=== PATIENT | female | born 1950 | race Caucasian/White ===

== ENCOUNTER 2024-12-25 06:49 | Observation (INO) ==
--- NOTE | 2024-12-11 15:47 | PAT Medication Instructions ---
Medication Instructions Date of Service December 11, 2024 Home Medications alendronate 70 mg tablet (Fosamax) 1 tab PO WK calcium carbonate (Calcium 600) 600 mg PO QAM levothyroxine 88 mcg tablet 88 mcg PO QAM multivitamin 1 tab PO QAM aspirin 81 mg tablet,delayed release (Adult Aspirin Regimen) 81 mg PO QAM potassium chloride 10 mEq capsule,extended release 10 meq PO QAM naproxen sodium 220 mg capsule (Aleve) 220 mg PO Q12H PRN Pain amlodipine 5 mg tablet 7.5 mg PO QAM Joint Support Gummy 1 gummy PO QAM celecoxib 100 mg capsule (Celebrex) 100 mg PO DAILY PRN Pain valsartan 160 mg-hydrochlorothiazide 12.5 mg tablet 1 tab PO QAM ASK your surgeon for instructions naproxen sodium 220 mg capsule (Aleve) 220 mg PO Q12H PRN Pain celecoxib 100 mg capsule (Celebrex) 100 mg PO DAILY PRN Pain ASK your prescriber and surgeon aspirin 81 mg tablet,delayed release (Adult Aspirin Regimen) 81 mg PO QAM STOP taking 2 weeks before surgery (or as soon as possible if surgery is within 2 weeks) Joint Support Gummy 1 gummy PO QAM DO NOT take the morning of surgery alendronate 70 mg tablet (Fosamax) 1 tab PO WK calcium carbonate (Calcium 600) 600 mg PO QAM multivitamin 1 tab PO QAM potassium chloride 10 mEq capsule,extended release 10 meq PO QAM valsartan 160 mg-hydrochlorothiazide 12.5 mg tablet 1 tab PO QAM Take morning of surgery With a small sip of water, OTHERWISE NOTHING TO EAT OR DRINK AFTER MIDNIGHT: levothyroxine 88 mcg tablet 88 mcg PO QAM amlodipine 5 mg tablet 7.5 mg PO QAM Other Notes If you have any questions please call us at [phone] or [phone] or [phone] or [phone]
--- NOTE | 2024-12-13 10:21 | Anesthesiology Consultation ---
Date of Service December 13, 2024 Assessment & Plan (1) Encounter for pre-operative examination: - Outpatient joint assessment: Patient is currently scheduled for inpatient pathway. If re-evaluated and patient/surgeon requests outpatient pathway, patient is not a recommended candidate for outpatient joint program. Chart Review Chart Review: Acceptable Risk for Surgery and Patient seen in Pre Admission Testing Teaching & Discussion Pre-Anesthesia Teaching/Discussion Notes: Instructed NPO after midnight before surgery, except medications with 15 cc of water. Medication instructions provided according to the PAT guidelines. History Surgery Operation Date: 12/25/24 08:50 Proposed Procedures p Left Total Knee Arthroplasty - Tan Watson MD Height/Weight Height: 5 ft 4 in Weight: 67.5 kg Allergies Allergy/AdvReac Type Severity Reaction Status Date / Time almond Allergy Severe Anaphylaxis Verified 12/11/24 14:47 apple Allergy Severe Anaphylaxis Verified 12/11/24 14:47 peach Allergy Severe Anaphylaxis Verified 12/11/24 14:47 pear Allergy Severe Anaphylaxis Verified 12/11/24 14:47 pistachio nut Allergy Severe Anaphylaxis Verified 12/11/24 14:47 plum Allergy Severe Anaphylaxis Verified 12/11/24 14:47 meloxicam Allergy Intermediate Flushing Verified 12/11/24 14:47 duloxetine AdvReac Intermediate "felt like Verified 12/13/24 10:29 had the flu" Medications Home Medications Medication Instructions Recorded Confirmed Last Taken alendronate 70 mg tablet (Fosamax) 1 tab PO WK 11/21/17 12/11/24 12/24/17 07:00 calcium carbonate (Calcium 600) 600 mg PO QAM 11/21/17 12/11/24 12/25/17 08:00 levothyroxine 88 mcg tablet 88 mcg PO QAM 11/21/17 12/11/24 12/26/17 06:00 multivitamin 1 tab PO QAM 11/21/17 12/11/24 12/25/17 08:00 aspirin 81 mg tablet,delayed 81 mg PO QAM 08/30/23 12/11/24 Unknown release (Adult Aspirin Regimen) potassium chloride 10 mEq 10 meq PO QAM 08/30/23 12/11/24 Unknown capsule,extended release naproxen sodium 220 mg capsule 220 mg PO Q12H PRN Pain 09/21/23 12/11/24 Unknown (Aleve) amlodipine 5 mg tablet 7.5 mg PO QAM 02/06/24 12/11/24 Unknown Joint Support Gummy 1 gummy PO QAM 12/11/24 12/11/24 Unknown celecoxib 100 mg capsule (Celebrex) 100 mg PO DAILY PRN Pain 12/11/24 12/11/24 Unknown valsartan 160 1 tab PO QAM 12/11/24 12/11/24 Unknown mg-hydrochlorothiazide 12.5 mg tablet Past Medical History Medical History (Updated 12/13/24 @ 10:40 by Coby Brush PA-C) Hearing deficit bl cain Hypertension controlled, stable per pt Hypothyroidism Nausea and vomiting after administration of anesthetic agent Osteoarthritis Osteoporosis Polymyalgia rheumatica Patient denies h/o stroke, seizures, heart attack, heart failure, DM, blood clots/DVTs or blood transfusions. Exercise / Class Metabolic Activity II 4-5 Yardwork/Stairs/Walk up hill (slowly ambulating one flight of stairs- denies chest discomfort or shortness of breath) Past Family History Family History Other No family history of adverse response to anesthesia Psoriatic arthritis Past Surgical History Surgical History H/O mastoidectomy History of back surgery discectomy, pt unsure what level History of hysterectomy History of thyroid surgery History of tonsillectomy History of total right knee replacement (TKR) (2018) [facility] Past Anesthesia History No Hx of Anesthesia Complications and No Family Hx of Anesthesia Complications History of PONV No Hx of Motion Sickness and History of PONV Social History Smoking Status: Never smoker Do You Dip or Chew Tobacco: No Hx Alcohol Use: Yes Alcohol type: wine alcohol intake frequency: holidays/special occasions only Hx Substance Use: No substance use type: does not use Review of Systems Occasional snoring, denies witnessed apneas. Patient denies chest pain, shortness of breath, dyspnea on exertion, reflux, fever, chills, cough, wheezing, or palpitations. Physical Exam Vital Signs Vitals BP 120/75 P 64 TEMP 97.8 SP02 97% on RA RESP 18 Physical Patient resting comfortably in chair in no acute distress, alert and oriented, responding appropriately throughout visit Full cervical extension range of motion without pain TMD 3.5 finger breadths Mallampati Score 2 Dentition: several caps/crowns, denies chipped or loose teeth, implants or bridges Lungs: normal respiratory effort. Good air movement, clear throughout to auscultation, no adventitious breath sounds Cardiac: regular rate and rhythm, no murmurs noted Carotid arteries: negative bruit bilat Lab Results Anesthesia Preop Results Results Anesthesia Widget: WBC 4.95 K/ul (4.8-10.8) 12/13/24 Hgb 12.2 g/dl (12.0-16.0) 12/13/24 Hct 38.8 % (37.0-47.0) 12/13/24 Plt 214 K/uL (130-400) 12/13/24 Na 141 mmol/L (136-145) 12/13/24 K 3.6 mmol/L (3.5-5.1) 12/13/24 Cl 105 mmol/L (98-107) 12/13/24 CO2 31 mmol/L (21-32) 12/13/24 BUN 17 mg/dl (6-23) 12/13/24 Creat 0.80 mg/dl (0.6-1.2) 12/13/24 Glucose Level 70 mg/dl (70-99(Fasting)) 12/13/24 PT 10.3 Seconds (9.0-12.0) 12/13/24 PTT 29 Seconds (21-31) 12/13/24 INR 1.0 (0.9-1.1) 12/13/24 Blood Type A Positive 12/13/24 Antibody Screen NEGATIVE 12/13/24 Testing Electrocardiogram Date: 12/13/24 Sinus bradycardia, rate 58 bpm Chest X-Ray Date: 12/13/24 No acute findings. Stress Test Date: 09/28/22 MPHR 97% METS 6 No evidence of myocardial ischemia or infarction EF 71% Normal wall motion
[~2024-12-25 06:49] MED LIST: BUPIVACAINE 0.5 % 5 MG/1 ML PF 10ML VIAL ONE; CeleBREX 200 MG CAP PO SCH; ROPIVACAINE 0.5% 5 MG/ML 30 ML VIAL ONE
--- NOTE | 2024-12-25 06:54 | History & Physical Bridge Note ---
Date of Service December 25, 2024 History & Physical Bridge Note I have examined the patient, reviewed the History & Physical and in the interval since the performance of the History & Physical I have noted the following changes of clinical significance: no changes noted
[2024-12-25] MEDS: LR 500ML BOLUS, THEN 15ML/HR IV SCH (07:24)
[2024-12-25] MEDS: LR 60ML/HR IV SCH (07:24)
[2024-12-25] MEDS: ACETAMINOPHEN 500 MG TAB PO SCH ×2 (07:25→14:29)
[2024-12-25] MEDS: METOCLOPRAMIDE HCL 10 MG TABLET PO SCH (07:25)
[2024-12-25] MEDS: dexAMETHasone**PF** 10 MG/ML VIAL IV SCH (07:26)
[2024-12-25] MEDS: FAMOTIDINE 20 MG TAB PO SCH (07:26)
[2024-12-25] MEDS ORDERED: PROMETHAZINE HCL 6.25 MG in SODIUM CHLORIDE 0.9% 50 ML IV PRN (08:03)
[2024-12-25] MEDS ORDERED: HYDROmorphone INJ 2 MG/ML SYR/VIAL IV PRN (08:03)
[2024-12-25] MEDS ORDERED: ATROPINE SULFATE 0.1 MG/ML 10ML SYR IV PRN (08:03)
[2024-12-25] MEDS: ORTHO JOINT ANESTHETIC ONE (10:13)
[2024-12-25] MEDS ORDERED: PROPOFOL IV EMULSION 10 MG/ML 20 ML VIAL IV ONE (11:00)
[2024-12-25] MEDS ORDERED: ePHEDrine sulfate 50 MG/5 ML SYR ONE (11:00)
[2024-12-25] MEDS ORDERED: ONDANSETRON INJ 2 MG/ML 2 ML VIAL ONE (11:00)
[2024-12-25] MEDS: ROPIV 0.5% 246mg, Ketorolac 30mg, EPINEPHrine 0.5mg in NSS INFIL SCH (11:02)
--- NOTE | 2024-12-25 11:42 | Operative Report ---
PG Post Operative Report Pre & Post Diagnosis Operation Date: 12/25/24 08:50 Pre-Op Diagnosis: Left Knee Degenerative Joint Disease Post-Op Diagnosis: Left Knee Degenerative Joint Disease I identified the patient and participated in the time-out.: Yes Procedure Operation Date: 12/25/24 08:50 Actual Procedures p Left Total Knee Arthroplasty(Left) - Tan Watson MD Surgeon Tan Watson MD Driller Hand Alexsander Davies PA-C Estimated Blood Loss 50 Findings Consistent with Post-Op Diagnosis Operative findings very advanced left knee medial compartment DJD. She had extensive grade 4 hmrr-io-jroh disease the entire medial compartment with eburnation of the medial femoral condyle medial tibial plateau. She had some spotty grade 4 changes in the patellofemoral joint as well as laterally. The moderate-sized joint effusion. Fixed varus deformity to her knee. Specimens Left knee sent for pathology. Anesthesia Type Spinal MAC Complications none Disposition Accompanied Patient To Recovery: No Indications Patient is [id number] female with a known history of knee pain for many years. She had a right knee replaced about 7 years ago. She done well from this. Over the past several years she developed increased pain deformity of the left knee. She failed conservative measures. X-rays show advanced medial compartment arthritis. She elected proceed with total knee arthroplasty. Description of Procedure Operative implants consist of: 1. Biomet Vanguard size 67.5 left posterior stabilized femoral component. 2. Size 67 tibial tray. 3. 10 mm PS plus polyethylene insert. 4. 28 x 8 all poly patella. The patient was taken to the op room, identified, placed on the operating table in the supine position. All contact areas were appropriately padded. IV antibiotics were provided by anesthesia team. A spinal anesthetic and adductor canal block had been provided in the holding area. A Powers catheter was placed in sterile fashion. A left phytate was then placed in the left lower extremity was then prepped and draped in usual sterile fashion. The left leg was elevated exsanguinated with use of an Esmarch and tourniquet placed at 300 mmHg. An anterior approach left knee was then performed to longitudinal incision centered over the patella. Sharp dissection was Through subcutaneous tissue down to the extensor mechanism. A medial parapatellar arthrotomy incision was made. Some subperiosteal dissection was Medially. The fat pad was resected from the patella tendon. Lateral patellofemoral ligament was released. Patella subluxate laterally and knee was flexed. The osteophytes taken off distal femur. ACL PCL then released in the distal femur the tibia subluxated anteriorly. The external tibial LYMErix then placed on the interface of the tibia and adjusted 14 mm medially. The proximal tibial cut was made to move about a millimeter bone from most deficient aspect the medial tibial plateau. Some osteophytes were taken off medially. The tibia sized to a size 67. Attention then drawn the femur. The distal femur was entered with a sharp drill. Intramedullary canal was suction. A left 5 degree valgus cutting guide was placed. The distal femoral cutting block was pinned in place. Distal femoral cut was made take an additional 3 mm of bone off distal femur. The femur was then sized to a size 67.5. We did downsize this about a half a size. The AP cutting block was pinned parallel to the epicondylar axis which was 4 degrees of external rotation. The anterior cut, anterior chamfer, posterior cut, posterior chamfer cuts were made. The box cutting guide was placed in the just slight laterally. The box cut was made. The knee was flexed. The remnants of the medial and lateral menisci were excised. The osteophytes taken off the posterior aspect of the femur. A trial femoral component was placed. The tibial tray was then pinned in Estephania external rotation and the drill and stem punch used to create defect in proximal tibia for the tibial tray. The knee was then trialed and the 10 mm insert fit most appropriately. There was a little bit of laxity laterally so I did elect to use a PS plus insert. Attention drawn the patella. The patella was cleaned of all soft tissue. Patella thickness measured 20 mm in thickness was cut down to 13. Was sized to a size 28 patella. The locals were drilled for the 28 patella. The lateral osteophytes removed. Patella button was placed. Knee was taken through range of motion patella tracked nicely with no thumbs test. Attention was then drawn to placement permanent components. All trial components were removed. Bone plug was placed into distal femur limit blood loss. A double batch Palacos G cement was mixed. A Biomet Vanguard size 67.5 left posterior stabilized femoral component, size 67 tibial tray, 8 x 10 mm PS plus insert, and a 28 x 8 all-poly patella then cemented in place. The knee was brought out into full extension until cement hardened. Final cement check was then performed. The pericapsular tissues were injected with total of 100 cc Ortho mix. The patient did receive 1 g tranexamic acid. The tourniquet was then let down for final tourniquet time 60 minutes. Hemostasis surgery was electrocautery. Extensor Meclomen then closed with combination 1 PDS suture #1 Vicryl suture in a cmfxrb-vw-havzo fashion. Extensor Meclomen checked found to be intact with subcutaneous tissue then closed with 2 Dexon suture in a buried interrupted fashion skin was closed skin twin. Leg was then cleaned and dried and a sterile dressing with Xeroform, 4 fours, sterile cast padding, Renny bandage were applied. Patient then transferred to the recovery room in stable condition. The patient tolerated procedure well and there were no complications. Alexsander Davies, my physician print shop assistant, was present for the entire procedure. His assistance was required for proper patient positioning, prepping and draping, surgical exposure, retraction, performed the technical details of the operation, placement of the implants, closure of the incision site, placement of postoperative sterile bandage. I attest to the content of the Intraoperative Record and any orders documented therein. Any exceptions are noted below.
--- NOTE | 2024-12-25 12:08 | XRay Report ---
XR knee LT 1 or 2V routine HISTORY: 74 years-old Female Surgical Post Op left knee arthroplasty COMPARISON: Radiographs 11/29/2024 TECHNIQUE: 2 views of the left knee FINDINGS: Total joint arthroplasty with patellar resurfacing. Anterior midline skin twin with expected posto perative soft tissue swelling and deep tissue air. No acute fracture or unexpected opaque foreign bod y. IMPRESSION: Satisfactory alignment of the total joint arthroplasty. ACT 112: Negative or not required by law. The above report was generated using voice recognition software. It may contain grammatical, syntax o r spelling errors. Electronically signed by: Deangelo Aparicio M.D. 12/25/2024 12:07 PM
[2024-12-25] MEDS ORDERED: ONDANSETRON INJ 2 MG/ML 2 ML VIAL IV PRN (12:33)
[2024-12-25] MEDS ORDERED: NALOXONE HCL 0.4 MG/1 ML VIAL/CARP IV PRN (12:33)
[2024-12-25] MEDS ORDERED: HYDROmorphone INJ 0.5 MG/0.5 ML SYR IV PRN (12:33)
[2024-12-25] MEDS ORDERED: ONDANSETRON 4 MG OD TAB PO PRN (12:33)
[2024-12-25] MEDS ORDERED: METOCLOPRAMIDE HCL INJ 5 MG/ML 2 ML VIAL IV PRN (12:33)
[2024-12-25] MEDS ORDERED: ALUMINUM/MAGNESIUM SUSP 30 ML UDC PO PRN (12:33)
[2024-12-25] MEDS ORDERED: MAGNESIUM HYDROXIDE SUSP 30 ML UDC PO PRN (12:33)
--- NOTE | 2024-12-25 13:16 | Anesthesiology Progress Note ---
Date of Service December 25, 2024 Anesthesia Post Procedure Vital Signs Vital Signs: Temp Pulse Pulse Resp BP BP Pulse Ox 12/25/24 13:07 36.5 C 75 16 124/62 91 12/25/24 12:30 36.4 C L 69 16 110/67 92 12/25/24 12:05 36.4 C L 72 15 105/61 95 12/25/24 11:55 72 14 101/54 L 95 12/25/24 11:45 76 15 111/53 L 97 12/25/24 11:36 36.1 C L 74 15 110/51 L 96 12/25/24 06:59 37 C 68 18 145/77 H 98 O2 Del Method O2 Flow Rate 12/25/24 13:07 Room Air 12/25/24 12:30 Room Air 12/25/24 12:05 Room Air 12/25/24 11:55 Room Air 12/25/24 11:45 Oxymask 5 12/25/24 11:36 Oxymask 5 12/25/24 06:59 Room Air Pain Intensity Left Knee: Pain Intensity: 0 Transfer of Care Handoff Completed per policy Notes Mental Status: alert / awake / arousable and participated in evaluation Nausea / Vomiting: adequately controlled Pain: adequately controlled Airway Patency, RR, SpO2: stable & adequate BP & HR: stable & adequate Hydration State: stable & adequate Neuraxial Anesthesia: was administered and sensory block is resolving Anesthetic Complications: no major complications apparent and Pt Satisfied with anesthetic care
[2024-12-25] MEDS: KETOROLAC TROMETHAMINE 15 MG/ML VIAL IV SCH (13:23)
[2024-12-25] MEDS: SODIUM CHLORIDE 0.9% 1,000 ML IV SCH (13:23)
[2024-12-25] MEDS: TRANEXAMIC ACID / 0.7% NACL 1,000 MG/100 ML BAG IV SCH (18:48)
[2024-12-25] MEDS: ASCORBIC ACID 500 MG TAB PO SCH (18:49)
[2024-12-25] MEDS: SENNA 8.6 MG TAB PO SCH (20:08)
[2024-12-25] MEDS: DOCUSATE SODIUM 100 MG CAP PO SCH (20:08)
[2024-12-25] MEDS: ASPIRIN 81 MG ECTAB PO SCH (20:09)
[2024-12-25] MEDS ORDERED: SENNA 8.6 MG TAB PO SCH (21:00)
[2024-12-26] MEDS: LEVOTHYROXINE SODIUM 88 MCG TABLET PO SCH (05:54)
[2024-12-26 07:25] VITALS: BP 123/69; PULSE 59; RESP 18; TEMP 97.5; O2SAT 96
--- NOTE | 2024-12-26 08:09 | Orthopedic Progress Note ---
Date of Service December 26, 2024 Assessment & Plan (1) Status post total left knee replacement: * Continue Current Treatment * Disposition: Home with home PT * Daily treatment: Physical Therapy/ Occupational Therapy per protocol * Weight bearing status: FWB, as tolerated * Continue to monitor for ABLA * Pain control * DVT prophylaxis, ASA * Office/hospital f/u 2 weeks for progress check and staple/suture removal * Stable for discharge from ortho standpoint, pending PT/OT Subjective . Active Problems: S/p left total knee arthroplasty POD 1 74 y/o female s/p left total knee arthroplasty with Dr. Watson 12/25/24. Doing well overall, pain managed and improved function. Denies fever/chills, chest pain/SOB, nausea/vomiting. Otherwise no complaints. Pt has been able to do exercises and out of bed to the chair. Review of Systems All systems reviewed & are unremarkable except as noted in HPI & below. Physical Exam * General: Alert and oriented, no acute distress * Constitutional: well-developed, well-nourished. * Respiratory: Normal respiratory effort, no distress * Gastrointestinal: No tenderness to palpation, no rigidity or guarding. * Skin: No rash or lesion. * Neurologic: Grossly normal * Musculoskeletal: Left knee surgical dressing clean, dry and in place, not removed for exam. Otherwise no obvious deformity or overlying skin changes RLE. Diffuse TTP distal thigh and knee region. Otherwise no specific tenderness of proximal thigh, lower leg, foot/ankle. AROM knee flexion 60 degrees. AROM foot/ankle intact. Sensation intact plantar/dorsal foot. Brisk capillary refill. . Results & Data Results & Data Laboratory Results . Diagnostic Findings Knee X-Ray 12/25/24 11:35 XR knee LT 1 or 2V routine HISTORY: 74 years-old Female Surgical Post Op left knee arthroplasty COMPARISON: Radiographs 11/29/2024 TECHNIQUE: 2 views of the left knee FINDINGS: Total joint arthroplasty with patellar resurfacing. Anterior midline skin twin with expected postoperative soft tissue swelling and deep tissue air. No acute fracture or unexpected opaque foreign body. IMPRESSION: Satisfactory alignment of the total joint arthroplasty. ACT 112: Negative or not required by law. The above report was generated using voice recognition software. It may contain grammatical, syntax or spelling errors. Electronically signed by: Deangelo Aparicio M.D. 12/25/2024 12:07 PM . PG Care Time/CCT Total # of Minutes Spent Total Time Spent with Patient: Total time spent is greater than 50% in coordination of care (as documented) at patient's floor/unit and/or counseling patient: Coding Level of Care Code 95875 Post Operative Follow-Up Diagnoses Status post total left knee replacement Z96.652
[2024-12-26] MEDS: POTASSIUM CHLORIDE 10 MEQ TABCR PO SCH (08:27)
[2024-12-26] MEDS: dexAMETHasone 10 MG in SYRINGE 0 ML IV SCH (08:29)
[2024-12-26] MEDS: hydroCHLOROthiazide 25 MG TAB PO SCH (08:29)
[2024-12-26] MEDS: MULTIVITAMIN TAB PO SCH (08:32)
[2024-12-26] MEDS: VALSARTAN 80 MG TAB PO SCH (08:32)
[2024-12-26] MEDS: CALCIUM CARBONATE 1250MG TAB PO SCH (08:34)
[2024-12-26] MEDS ORDERED: [UNRECOGNIZED DRUG - OTHER] PO SCH (09:00)
[2024-12-26] MEDS ORDERED: NON-FORMULARY MEDICATION (Multivitamin Tablet) PO SCH (09:00)
[2024-12-26] MEDS ORDERED: VALSARTAN/HCTZ 160/12.5MG TAB PO SCH (09:00)
== END 2024-12-26 11:00 | disposition home health service (06) ==
LOC: 3W 06:49 → ASU 06:49